=== PATIENT | female | born 1990 | race Caucasian/White ===

== ENCOUNTER 2020-06-04 11:28 | Outpatient (REF) | payer OTHER, SELFPAY ==
[2020-06-09 10:26] LABS: HPV mRNA E6/E7 Not Detected (Not Detected)
== END 2020-06-04 11:29 | disposition home or self-care (01) ==
LOC: HO.LAB 11:28
PROVIDERS: PCP Student in an Organized Health Care Education/Training Program; Referring Provider Student in an Organized Health Care Education/Training Program; Visit Provider Obstetrics & Gynecology
DX: Z01.419 Encounter for gynecological examination (general) (routine) without abnormal findings (principal); Z11.51 Encounter for screening for human papillomavirus (HPV)
CPT/HCPCS: 87624; 87625; 88142; 99395

== ENCOUNTER → 2020-07-16 15:03 | Outpatient (BNVA) | payer OTHER, SELFPAY | PROVIDERS: Visit Provider Obstetrics & Gynecology | DX: Z76.89 Persons encountering health services in other specified circumstances (principal) ==

== ENCOUNTER 2020-07-18 09:10 | Day surgery (SDC) | payer OTHER, SELFPAY ==
[2020-07-14 08:18] VITALS: BMI 22.4
--- NOTE | 2020-07-16 14:34 | HO.ANESPROP2 ---
Documented by User: She Hartmann 07/16/20 14:35 HPI - Anesthesia Eval Consult details Narrative: 30yo F for Bilateral Tubal Ligation Laparoscopic, Poss Bilateral Sapingectomy PMFSH Family History Family History Mother Cancer Paternal Aunt Breast cancer Surgical History Surgical History History of eye surgery Social History Social History Alcohol intake: never Smoking Status: Never smoker Advance Directives Information Provided: No Sexual orientation: Straight/Heterosexual Gender identity: female Meds Allergies Allergy/AdvReac Type Severity Reaction Status Date / Time No Known Allergies Allergy Verified 07/16/20 15:17 Home Medications Medication Instructions Recorded Confirmed Type No Known Home Meds 07/16/20 07/16/20 History Exam Exam Date and Time: July 16, 2020 1434 Height,Weight and Vital Signs: Height 5 ft 4 in Weight 59.421 kg Assessment and Plan Assessment Anesthesia Assessment: Chart Reviewed Documented by User: Alayna Snyder 07/18/20 09:25 PMFSH Family History Family History Mother Cancer Paternal Aunt Breast cancer Surgical History Surgical History History of eye surgery Social History Social History Alcohol intake: never Smoking Status: Never smoker Advance Directives Information Provided: No Sexual orientation: Straight/Heterosexual Gender identity: female Meds Allergies Allergy/AdvReac Type Severity Reaction Status Date / Time No Known Allergies Allergy Verified 07/16/20 15:17 Home Medications Medication Instructions Recorded Confirmed Type No Known Home Meds 07/16/20 07/16/20 History Exam Airway Mallampati Class: I TM Dist: >3cm Neck ROM: Full
[2020-07-18] VITALS (8 sets, daily range): BP systolic 125–139; BP diastolic 80–87; PULSE 61–76; RESP 16–18; TEMP 36.4–36.6; O2SAT 98–100
[2020-07-18] MEDS: Lactated Ringers 1,000 ML 100 ML IVCONT (09:28)
[2020-07-18] MEDS: Acetaminophen 325 MG TABLET 650 MG PO (09:28)
[2020-07-18 09:55] LABS: UPreg QC Valid YES; Urine Pregnancy NEGATIVE (NEGATIVE)
--- NOTE | 2020-07-18 10:39 | MHC.SHP ---
Pre-Procedural Eval Section A The patient is an INPATIENT: No Changes since office visit: No Cold of Flu in the past 2 weeks, No New Medical Problems, No Changes in Medication and No Patient answered all questions The History & Physical has been completed within 30 days and I have reviewed it.: Yes Section B Chief Complaint: Pt Requesting Permanent Sterilization Allergies: Allergies Allergy/AdvReac Type Severity Reaction Status Date / Time No Known Allergies Allergy Verified 07/16/20 15:17 Plan Diagnosis/Plan: Unchanged Patient has been examined and remains a candidate for the planned procedure
--- NOTE | 2020-07-18 11:50 | PM.OP ---
Brief Operative Note Date of Service: 07/18/20 Pre-op diagnosis: Completed Family Requesting Permanent Sterilization Post-op diagnosis: same Procedure: Laparscoic bliateral salpingectomy Surgeon: Kostas Horner MD Anesthesia: GETA Estimated blood loss (mL): 0 Pathology: other (Right & left fallopian tubes) Condition: stable Disposition: PACU
--- NOTE | 2020-07-18 11:51 | P.OP_ITS ---
Operative Note Operative Note Date of Service: 07/18/20 Narrative: PREOPERATIVE DIAGNOSIS:?Completed family requesting?permanent sterilization POSTOPERATIVE DIAGNOSIS:?Completed family requesting?permanent sterilization QBL: Minimal Anesthesia: GETA SURGEON:? Kostas Horner MD?? Loading Machine Operator Helper: Complications: None Pathology: Right and left Fallopian tubes? DESCRIPTION OF PROCEDURE:?The patient was taken to the OR where general anesthesia was easily obtained. The patient was then prepped and draped in a sterile fashion and placed in dorsal lithotomy position. A speculum was introduced into the patient?s vagina for cervical visualization. Once the cervix was visualized, a single-toothed tenaculum was applied to the upper lip of the cervix, and a Humi manipulator was introduced into the patient?s cervix. The single tooth tenaculum was then removed and hemostasis was assured?using pressure. a Flores catheter?was inserted and clear urine started draining. Gloves were changed to clean ones. Attention was then drawn to the abdomen where a 10 mm longitudinal incision was done intra umbilical and carried down all the way to the fascia, which was tented?up using 2 Sho clamps and was nicked in the midline and then extended on both end of the incision?, them using 2 pick?ups the peritoneum?was entered with Metzenbaum scissors and under direct visualization, a 10 mm Rodriguez trocar was introduced into the patient?s abdomen. Once intraperitoneal placement was confirmed with direct visualization, pneumoperitoneum was started & was easily obtained.Then, two fingerbreadths above the pubic symphysis and towards the?right lower quadrant, under direct visualization, a 5 mm trocar was then introduced into the patient?s abdomen. and a 3rd one on the left?lower quadrant was placed?in a similar manner. The patient was placed in Trendelenburg position, Inspection revealed normal pelvic stru ctures & bilateral ovaries and fallopian tubes. Attention was then drawn to the left fallopian tube. The IP ligament was identified and fallopian tube was then grasped by the fimbria and incised from the mesosalpinx using ligasure device, using cautery for hemostasis and cutting afterwards a bite at a time all the way to the cornual end of the left tube. The same was done?on the?right fallopian tu be. Good hemostasis was noted from both fallopian tube sites and the operative site. Specimen were then removed from the patient?s abdomen. Copious irrigation was done. Once good hemostasis was noted from the patient?s abdomen, pneumoperitoneum was deflated and all trocars were removed. Infraumbilical fascia was closed with 0 Vicryl and interrupted suture. The skin was closed with 4-0 Vicryl. The Right and left?lower quadrant ports were closed with 0 Vicryl. Bupivicaine 0.25 10 cc were injected subcuticularly in the 3 incisions. Then speculum was put back in the vagina inspection revealed?hemostasis at the site of the tenaculum, the?humi manipulator was removed? and Flores was draining clear urine was taken out too. Sponge, lap and needle counts were correct x2. The patient was taken to the recovery room in stable condition.
[2020-07-18] MEDS: oxyCODONE HCl Immed Release 5 MG TABLET PO (12:34)
--- NOTE | 2020-07-18 13:39 | HO.POSTANES ---
Post Anesthesia Evaluation Post Anesthesia Evaluation Vital Signs: Vital Signs Temp Pulse Resp BP Pulse Ox 07/18/20 13:00 97.5 F 63 16 125/81 98 07/18/20 12:45 63 16 133/80 99 07/18/20 12:30 61 16 138/81 98 07/18/20 12:15 73 16 132/85 99 07/18/20 12:10 66 16 128/80 100 07/18/20 12:05 69 16 135/82 99 07/18/20 12:00 97.7 F 76 16 139/87 100 07/18/20 09:25 97.8 F 69 18 125/85 100 Anesthesia: General Endotracheal-GETA Mental Status: Awake Pain Control: Satisfactory Nausea/Vomiting: None Hydration: Adequate Anesthesia-Related Issues: No Anes. Related Issues
== END 2020-07-18 13:45 | disposition home or self-care (01) ==
PROVIDERS: PCP Student in an Organized Health Care Education/Training Program; Visit Provider Obstetrics & Gynecology
PROC: (CPT 58670; principal; 2020-07-18 10:30)
DX: Z30.2 Encounter for sterilization (principal)
CPT/HCPCS: 58661; 81025; 86850; 86900; 86901; 88302; J1100; J2250; J2405; J3010

== ENCOUNTER → 2020-08-06 11:38 | Outpatient (BNVA) | payer OTHER, SELFPAY | PROVIDERS: Visit Provider Obstetrics & Gynecology | DX: Z76.89 Persons encountering health services in other specified circumstances (principal) ==